=== PATIENT | male | born 1995 | race Caucasian/White ===

== ENCOUNTER 2018-07-24 19:30 | Emergency (ER) | payer OTHER ==
[~2018-07-24] VITALS: Ht 177.8 cm; Wt 77.1 kg
[2018-07-24] MEDS ORDERED: NOHOMEMEDICATIONS (19:47)
[2018-07-24] MEDS ORDERED: PREDNISONE 20 M20 MG PO (20:07)
[2018-07-24 20:13] VITALS: BP 122/63
== END 2018-07-24 20:14 | disposition home or self-care (01) ==
LOC: M.ERS 19:30
DX: L53.9 Erythematous condition, unspecified (principal); R21 Rash and other nonspecific skin eruption; Z88.0 Allergy status to penicillin